=== PATIENT | female | born 1950 | race Caucasian/White ===

== ENCOUNTER 2018-04-13 06:27 | Day surgery (SDC) | payer MEDICARE ==
[~2018-04-13 06:27] MED LIST: CEFAZOLIN 2 GM/50 ML (PMX) 50 ML IVPB
[2018-04-13] MEDS ORDERED: GLYCOPYRROLATE 0.4 MG INJ (07:00)
[2018-04-13] MEDS ORDERED: CEFAZOLIN 1 GM INJ (07:00)
[2018-04-13] MEDS ORDERED: ONDANSETRON 4 MG INJ (07:00)
[2018-04-13] MEDS ORDERED: SUGAMMADEX SODIUM 200 MG/2 ML VIAL IV (07:00)
[2018-04-13] MEDS ORDERED: NEOSTIGMINE 3 MG/3 ML SYRINGE (07:00)
[2018-04-13] MEDS ORDERED: ROCURONIUM 50 MG INJ (07:00)
[2018-04-13] MEDS ORDERED: PROVENTIL HFA 6.7GM INHALER (07:00)
[2018-04-13] MEDS ORDERED: BUPIVACAINE 0.25% (MPF) 30 ML INJ (07:39)
[2018-04-13] MEDS ORDERED: POLYMYXIN/BACITRACIN 1L IRRIG (07:39)
[2018-04-13] MEDS ORDERED: PROPOFOL 20 ML (08:16)
[2018-04-13] MEDS ORDERED: SUCCINYLCHOLINE CHLORIDE 100 MG/5 ML SYG IV (08:16)
[2018-04-13] MEDS ORDERED: FENTAnyl 50 MCG/ML VIAL (08:16)
[2018-04-13] MEDS ORDERED: LIDOCAINE 2% (SDV) 5 ML INJ (08:16)
[2018-04-13] MEDS ORDERED: MIDAZOLAM 1 MG/ML 2 ML INJ (08:16)
[2018-04-13] MEDS ORDERED: METOCLOPRAMIDE 10 MG INJ (08:17)
[2018-04-13] MEDS ORDERED: DIPHENHYDRAMINE 50 MG INJ IV (08:30)
[2018-04-13] MEDS ORDERED: hydrALAzine 20 MG INJ IV (08:30)
[2018-04-13] MEDS ORDERED: LABETALOL HCL 20MG INJ IV (08:30)
[2018-04-13] MEDS ORDERED: HYDROmorphONE 1 MG/5 ML IV SYRINGE IV ×3 (08:30)
[2018-04-13] MEDS ORDERED: FENTAnyl 50 MCG/ML VIAL IV ×2 (08:30)
[2018-04-13] MEDS ORDERED: ONDANSETRON 4 MG INJ IV (08:30)
[2018-04-13] MEDS ORDERED: MEPERIDINE 25 MG INJ IV (08:30)
[2018-04-13] MEDS ORDERED: ROPIVACAINE 0.5 % 30 ML VIAL (08:36)
[2018-04-13] MEDS ORDERED: LIDOCAINE 1% (STERILE-PAK) 30 ML INJ (08:41)
[2018-04-13] MEDS: BUPIVACAINE 0.25%/EPI (SDV) 30 ML INJ (08:54)
[2018-04-13] MEDS: LIDOCAINE 1%/EPI 30 ML INJ (08:54)
[2018-04-13] MEDS: POLYMYXIN/BACITRACIN 1L IRRIG IRR (08:58)
[2018-04-13] MEDS: LEVALBUTEROL (NEB) 1.25 MG/0.5 ML AMP HHN (11:03)
[2018-04-13] MEDS: IPRATROPIUM (NEB) 0.5 MG/2.5 ML AMP HHN (11:04)
== END 2018-04-13 13:40 | disposition home or self-care (01) ==
LOC: SDS 06:27
DX: K40.90 Unilateral inguinal hernia, without obstruction or gangrene, not specified as recurrent (principal); K42.9 Umbilical hernia without obstruction or gangrene; I10 Essential (primary) hypertension; E11.9 Type 2 diabetes mellitus without complications; E66.9 Obesity, unspecified; R06.02 Shortness of breath
CPT/HCPCS: 49505; 82962; 94664